=== PATIENT | female | born 1955 | race Caucasian/White ===

== ENCOUNTER 2017-05-24 15:28 | Outpatient (CLI) | payer BC | END 2017-05-24 15:29 | disposition home or self-care (01) | LOC: BICMAMMO 15:28 | PROVIDERS: ATTEND Obstetrics & Gynecology | DX: Z12.31 Encounter for screening mammogram for malignant neoplasm of breast (principal); N64.89 Other specified disorders of breast | CPT/HCPCS: 77063; 77067 ==

== ENCOUNTER 2017-11-26 09:48 | Outpatient (CLI) | payer BC ==
--- NOTE | 2017-11-26 10:51 | RAD ---
ABDOMEN 1 VIEW: Date: 11/26/17 HISTORY: Left lower quadrant pain. COMPARISON: None. FINDINGS: There is low grade dextroscoliosis. There is moderate stool burden. No dilated or air-filled loops of large or small bowel. No abnormal calcifications projecting over th e renal shadows. IMPRESSION: Moderate stool burden. No evidence for obstruction. POS: [facility]
--- NOTE | 2017-11-26 12:38 | RAD ---
AIR CONTRAST UPPER GI: INDICATIONS: Abdominal pain. FINDINGS: The swallowing mechanism and the esophagus appear unremarkable. There is a small sliding diaphragmat ic hernia. A Schatzki's ring is noted with mild luminal narrowing at this site. A 12 mm barium tabl et temporarily lodged at this site but did pass through with repeated swallows. No significant GE re flux was demonstrated when the patient was placed recumbent. Gastric mucosa appeared normal. The du odenum appeared unremarkable. IMPRESSION: 1. Small sliding diaphragmatic hernia. 2. Schatzki's ring with mild luminal narrowing at this site. 3. Upper gastrointestinal study otherwise unremarkable. POS: [facility]
== END 2017-11-26 09:49 | disposition home or self-care (01) ==
LOC: RAD 09:48
PROVIDERS: ATTEND Internal Medicine Gastroenterology
DX: R10.12 Left upper quadrant pain (principal); R63.5 Abnormal weight gain; K44.9 Diaphragmatic hernia without obstruction or gangrene; K22.2 Esophageal obstruction; R19.5 Other fecal abnormalities; Z80.0 Family history of malignant neoplasm of digestive organs
CPT/HCPCS: 74018; 74247

== ENCOUNTER 2018-01-25 08:22 | Outpatient (CLI) | payer BC ==
--- NOTE | 2018-01-25 09:42 | CT ---
CT OF THE ABDOMEN WITHOUT AND WITH CONTRAST: History: Intermittent left upper quadrant discomfort for years. Unintentional weight loss. Technique: Multiple contiguous axial images were obtained in a CT of the abdomen only without and wit h IV contrast. PO contrast was administered. Coronal reformats were performed. FINDINGS: The patient is status post cholecystectomy. The liver, kidneys, adrenal glands, spleen, and pancreas are unremarkable. No free air, free fluid, or stranding changes are seen in the abdomen. The visualized large and small bowel are unremarkable. The liver, kidneys, adrenal glands, spleen and pancreas are unremarkable. No free air, free fluid, or stranding changes are seen in the abdomen. Vi sualized large and small bowel are unremarkable. The appendix is normal. No abdominal adenopathy is s een. Atherosclerotic calcifications are seen in the aorta. Degenerative changes are seen in the spine. There are stranding changes in the abdominal wall which m ay be from recent injections. The visualized inferior thorax is unremarkable. IMPRESSION: No evidence of acute intraabdominal abnormality. POS: [facility]
== END 2018-01-25 08:23 | disposition home or self-care (01) ==
LOC: SCSCT 08:22
PROVIDERS: ATTEND Physician Assistant Medical
DX: R10.12 Left upper quadrant pain (principal); R11.0 Nausea; Z80.0 Family history of malignant neoplasm of digestive organs
CPT/HCPCS: 74160; 74170; 82565

== ENCOUNTER 2018-06-13 14:13 | Outpatient (CLI) | payer BC ==
--- NOTE | 2018-06-13 15:15 | BD ---
EXAM: DEXA bone density examination HISTORY: 62-year-old postmenopausal female for screening COMPARISON: None FINDINGS: L1--bone mineral density 1.163 g/sq cm; T score 1.6 L2--bone mineral density 1.307 g/sq cm; T score 2.5 L3--bone mineral density 1.260 g/sq cm; T score 1.6 L4--bone mineral density 1.191 g/sq cm; T score 1.2 Total L1-L4--bone mineral density 1.230 g/sq cm; T score 1.7 Left femoral neck--bone mineral density0.997; T score 1.3 Total proximal left femur--bone mineral density 1.156; T score 1.8 IMPRESSION: WHO classification: Normal bone mineral density.
--- NOTE | 2018-06-13 15:33 | MMO ---
Bilateral MAMMO Bilat Screen [facility]. CLINICAL HISTORY: Patient is 62 years old and is seen for screening. The patient has no family history of breast cancer. The patient has a history of other cancer. VIEWS: The views performed were: bilateral craniocaudal with tomosynthesis; bilateral mediolateral oblique with tomosynthesis; and bilateral exaggerated craniocaudal. FILMS COMPARED: The present examination has been compared to prior imaging studies performed at [facility] on 06/28/2006, 06/30/2007, 08/16/2008, 09/23/2009, 09/24/2010, 09/28/2011, 10/31/2012, 11/10/2013, 11/19/2014, 01/08/2016 and 05/24/2017, and at [facility] on 04/24/2003, 05/15/2004 and 06/23/2005. MAMMOGRAM FINDINGS: The breasts are heterogeneously dense, which could obscure a lesion on mammography. There are stable benign appearing densities seen in both breasts. There are no suspicious masses, suspicious calcifications, or new areas of architectural distortion. IMPRESSION: THERE IS NO MAMMOGRAPHIC EVIDENCE OF MALIGNANCY. A ROUTINE FOLLOW-UP MAMMOGRAM IN 1 YEAR IS RECOMMENDED. THE RESULTS OF THIS EXAM WERE SENT TO THE PATIENT. ACR BI-RADS Category 2 - Benign finding MAMMOGRAPHY NOTE: 1. A negative mammogram report should not delay a biopsy if a dominant of clinically suspicious mass is present. 2. Approximately 10% to 15% of breast cancers are not detected by mammography. 3. Adenosis and dense breasts may obscure an underlying neoplasm.
== END 2018-06-13 14:14 | disposition home or self-care (01) ==
LOC: BICMAMMO 14:13
PROVIDERS: ATTEND Obstetrics & Gynecology
DX: Z12.31 Encounter for screening mammogram for malignant neoplasm of breast (principal); Z13.820 Encounter for screening for osteoporosis; M81.0 Age-related osteoporosis without current pathological fracture; M85.80 Other specified disorders of bone density and structure, unspecified site; Z85.89 Personal history of malignant neoplasm of other organs and systems; Z98.890 Other specified postprocedural states
CPT/HCPCS: 77063; 77067; 77080

== ENCOUNTER 2018-06-20 14:14 | Outpatient (CLI) | payer BC | END 2018-06-20 14:15 | disposition home or self-care (01) | LOC: CTENTCT 14:14 | PROVIDERS: ATTEND Otolaryngology Plastic Surgery within the Head & Neck | DX: J01.81 Other acute recurrent sinusitis (principal) | CPT/HCPCS: 70486 ==

== ENCOUNTER 2020-01-15 16:00 | Outpatient (CLI) | payer BC | END 2020-01-15 16:01 | disposition home or self-care (01) | LOC: CTENTCT 16:00 | PROVIDERS: ATTEND Otolaryngology Plastic Surgery within the Head & Neck | DX: J32.9 Chronic sinusitis, unspecified (principal) | CPT/HCPCS: 70486 ==

== ENCOUNTER 2022-04-08 09:59 | Outpatient (CLI) | payer MEDICARE, BC | END 2022-04-08 10:00 | disposition home or self-care (01) | LOC: SCSRAD 09:59 | PROVIDERS: ATTEND Allergy & Immunology | DX: R05.9 Cough, unspecified (principal) | CPT/HCPCS: 71046 ==